=== PATIENT | female | born 1965 ===

== ENCOUNTER 2018-05-21 12:10 | Emergency (ER) | payer SELFPAY ==
[2018-05-21] MEDS ORDERED: FENTANYL CITR 100 MCG/2 ML ONE (13:27)
[2018-05-21] MEDS ORDERED: DIAZEPAM 2 MG TABLET ONE (13:28)
--- NOTE | 2018-05-21 14:00 | RAD REPORT ---
EXAM DESCRIPTION: RAD - Lumbar Spine 3 Views - 05/21/2018 1:46 pm CLINICAL HISTORY: Back pain FINDINGS: The alignment of the lumbar spine is satisfactory. No fracture or dislocation is seen. Minimal spondylosis involves the lumbar spine. Bones appear somewhat osteoporotic.
--- NOTE | 2018-05-21 14:09 | EDPHYS ---
Physician Documentation [facility] Name: Kaylah Anaya Age: 53 yrs Sex: Female : 1965 Arrival Date: 05/21/2018 Time: 12:12 Bed 14 Private MD: ED Physician Jake Green HPI: 05/21 13:32 This 53 yrs old Female presents to ER via Ambulatory with complaints of Back Injury. snw 13:32 The patient presents with pain that is acute, and decreased range of motion. The snw symptoms are located in the low back. Onset: The symptoms/episode began/occurred suddenly, today. The pain does not radiate. Associated signs and symptoms: Pertinent positives: tailbone pain. The problem was sustained when lifting heavy object, pt let go of object and fell back onto buttocks. Severity of symptoms: At their worst the symptoms were moderate. The patient has not experienced similar symptoms in the past. It is unknown whether or not the patient has recently seen a physician. 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 - Social history:: Smoking status: Patient/guardian denies using tobacco. - Ebola Screening: : Patient denies travel to an Ebola-affected area in the 21 days before illness onset. ROS: 13:31 Constitutional: Negative for fever, chills, and weight loss, Eyes: Negative for injury, snw pain, redness, and discharge, ENT: Negative for injury, pain, and discharge, Neck: Negative for injury, pain, and swelling, Cardiovascular: Negative for chest pain, palpitations, and edema, Respiratory: Negative for shortness of breath, cough, wheezing, and pleuritic chest pain, Abdomen/GI: Negative for abdominal pain, nausea, vomiting, diarrhea, and constipation, Back: Positive for injury and pain, : Negative for injury, bleeding, discharge, and swelling, MS/Extremity: Negative for injury and deformity, Skin: Negative for injury, rash, and discoloration, Neuro: Negative for headache, weakness, numbness, tingling, and seizure. Exam: 13:31 Constitutional: This is a well developed, well nourished patient who is awake, alert, snw and in no acute distress. Head/Face: Normocephalic, atraumatic. Eyes: Pupils equal round and reactive to light, extra-ocular motions intact. Lids and lashes normal. Conjunctiva and sclera are non-icteric and not injected. Cornea within normal limits. Periorbital areas with no swelling, redness, or edema. ENT: Nares patent. No nasal discharge, no septal abnormalities noted. Tympanic membranes are normal and external auditory canals are clear. Oropharynx with no redness, swelling, or masses, exudates, or evidence of obstruction, uvula midline. Mucous membranes moist. Neck: Trachea midline, no thyromegaly or masses palpated, and no cervical lymphadenopathy. Supple, full range of motion without nuchal rigidity, or vertebral point tenderness. No Meningismus. Chest/axilla: Normal chest wall appearance and motion. Nontender with no deformity. No lesions are appreciated. Cardiovascular: Regular rate and rhythm with a normal S1 and S2. No gallops, murmurs, or rubs. Normal PMI, no JVD. No pulse deficits. Respiratory: Lungs have equal breath sounds bilaterally, clear to auscultation and percussion. No rales, rhonchi or wheezes noted. No increased work of breathing, no retractions or nasal flaring. Abdomen/GI: Soft, non-tender, with normal bowel sounds. No distension or tympany. No guarding or rebound. No evidence of tenderness throughout. Skin: Warm, dry with normal turgor. Normal color with no rashes, no lesions, and no evidence of cellulitis. MS/ Extremity: Pulses equal, no cyanosis. Neurovascular intact. Full, normal range of motion. Neuro: Awake and alert, GCS 15, oriented to person, place, time, and situation. Cranial nerves II-XII grossly intact. Motor strength 5/5 in all extremities. Sensory grossly intact. Cerebellar exam normal. Normal gait. 13:31 Back: pain, that is moderate, that is severe, normal spinal alignment noted, vertebral tenderness, muscle spasm, is appreciated in the low back area. Vital Signs: 12:17 BP 130 / 84; Pulse 75; Resp 18; Temp 97.7; Pulse Ox 97% on R/A; Weight 113.4 kg (R); aj1 Height 5 ft. 9 in. (175.26 cm) (R); Pain 8/10; 13:15 BP 113 / 95; Pulse 62; Resp 19; Pulse Ox 99% on R/A; rb1 14:15 BP 111 / 62; Pulse 60; Resp 18; Pulse Ox 96% on R/A; rb1 12:17 Body Mass Index 36.92 (113.40 kg, 175.26 cm) aj1 MDM: 12:25 Patient medically screened. snw 14:09 Data reviewed: vital signs, nurses notes. Data interpreted: Pulse oximetry: on room air snw is 99 %. Interpretation: acceptable. Counseling: I had a detailed discussion with the patient and/or guardian regarding: the historical points, exam findings, and any diagnostic results supporting the discharge/admit diagnosis, radiology results, the need for outpatient follow up, to return to the emergency department if symptoms worsen or persist or if there are any questions or concerns that arise at home. Special discussion: I have referred the patient to see his PCP for further evaluation of high blood pressure. Based on the history and exam findings, there is no indication for further emergent testing or inpatient evaluation. I discussed with the patient/guardian the need to see the back specialist for further evaluation of the symptoms. I discussed with the patient/guardian the need to see the primary care provider for further evaluation of the symptoms. 05/21 12:25 Order name: Lumbar Spine (3 Views) XRAY; Complete Time: 14:03 snw Administered Medications: 13:24 Drug: fentaNYL (PF) 50 mcg Route: IM; Site: left gluteus; rb1 14:00 Follow up: Response: No adverse reaction; Pain is decreased rb1 13:24 Drug: Valium 2 mg Route: PO; rb1 14:00 Follow up: Response: No adverse reaction; Pain is decreased rb1 Disposition: 15:24 Co-signature as Attending Physician, Jake Green MD I agree with the assessment and kdr plan of care. Disposition: 05/21/18 14:07 Discharged to Home. Impression: Fall on same level, unspecified, Low back pain, Muscle spasm of back. - Condition is Stable. - Discharge Instructions: Back Pain, Adult, Hypertension, Muscle Cramps and Spasms, Musculoskeletal Pain, Cryotherapy, Heat Therapy. - Prescriptions for Diclofenac Sodium 75 mg Oral Tablet Sustained Release - take 1 tablet by ORAL route 2 times per day; 30 tablet. orphenadrine citrate 100 mg Oral Tablet Sustained Release - take 1 tablet by ORAL route 2 times per day As needed; 20 tablet. Ultram 50 mg Oral Tablet - take 1 tablet by ORAL route every 6 hours As needed; 10 tablet. - Work release form, Medication Reconciliation Form, Thank You Letter, Antibiotic Education, Prescription Opioid Use form. - Follow up: Private Physician; When: 2 - 3 days; Reason: Recheck today's complaints, Continuance of care, Re-evaluation by your physician. Follow up: Emergency Department; When: As needed; Reason: Fever > 102 F, Worsening of condition. Signatures: Dispatcher [employer] EDMS Blanca Livingston RN RN aj1 Jake Green MD MD kdr Belgica Amaro, BAIT MAKER-C BAIT MAKER-Csnw Lily Helms RN RN rb1 Corrections: (The following items were deleted from the chart) 14:43 14:07 05/21/2018 14:07 Discharged to Home. Impression: Fall on same level, unspecified; rb1 Low back pain; Muscle spasm of back. Condition is Stable. Forms are Medication Reconciliation Form, Thank You Letter, Antibiotic Education, Prescription Opioid Use. Follow up: Private Physician; When: 2 - 3 days; Reason: Recheck today's complaints, Continuance of care, Re-evaluation by your physician. Follow up: Emergency Department; When: As needed; Reason: Fever > 102 F, Worsening of condition. snw
--- NOTE | 2018-05-21 14:09 | ER ---
Nurse's Notes [facility] Name: Kaylah Anaya Age: 53 yrs Sex: Female : 1965 Arrival Date: 05/21/2018 Time: 12:12 Bed 14 Private MD: Diagnosis: Fall on same level, unspecified;Low back pain;Muscle spasm of back Presentation: 05/21 12:13 Presenting complaint: Patient states: "I was moving furniture and it was really heavy. aj1 I lifted it, and I really hurt my back, so I dropped it and fell backward, which hurt my butt." Reports pain to left lower back and buttocks. States this occurred one hour ago. Denies weakness, or trouble walking. Transition of care: patient was not received from another setting of care. Onset of symptoms was May 21, 2018 at 11:15. Risk Assessment: Do you want to hurt yourself or someone else? Patient reports no desire to harm self or others. Initial Sepsis Screen: Does the patient meet any 2 criteria? No. Patient's initial sepsis screen is negative. Does the patient have a suspected source of infection? No. Patient's initial sepsis screen is negative. Care prior to arrival: None. 12:13 Method Of Arrival: Ambulatory aj1 12:13 Acuity: ERROL 4 aj1 Triage Assessment: 12:17 General: Appears in no apparent distress. Behavior is calm, cooperative, appropriate aj1 for age. Pain: Complains of pain in left low back and pelvis Pain currently is 8 out of 10 on a pain scale. Neuro: Level of Consciousness is awake, alert, obeys commands. Cardiovascular: Patient's skin is warm and dry. Respiratory: Airway is patent Respiratory effort is even, unlabored, Respiratory pattern is regular, symmetrical. 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 - Social history:: Smoking status: Patient/guardian denies using tobacco. - Ebola Screening: : Patient denies travel to an Ebola-affected area in the 21 days before illness onset. Screenin:29 Abuse screen: Denies threats or abuse. Nutritional screening: No deficits noted. rb1 Tuberculosis screening: No symptoms or risk factors identified. Fall Risk None identified. Assessment: 12:29 General: Appears uncomfortable, Behavior is calm, cooperative. Pain: Complains of pain rb1 in left low back and sacrum Pain currently is 8 out of 10 on a pain scale. Pain began 2 hours ago. Neuro: Level of Consciousness is awake, alert, obeys commands, Oriented to person, place, time, situation. Cardiovascular: Capillary refill < 3 seconds is brisk in bilateral fingers. Respiratory: Airway is patent Respiratory effort is even, unlabored, Respiratory pattern is regular, symmetrical. GI: No signs and/or symptoms were reported involving the gastrointestinal system. : No signs and/or symptoms were reported regarding the genitourinary system. Derm: Skin is pink, warm \\T\\ dry. Musculoskeletal: Range of motion: intact in all extremities. 13:25 Reassessment: Patient appears in no apparent distress at this time. Patient and/or rb1 family updated on plan of care and expected duration. Pain level reassessed. Patient is alert, oriented x 3, equal unlabored respirations, skin warm/dry/pink. 14:20 Reassessment: Patient appears in no apparent distress at this time. Patient and/or rb1 family updated on plan of care and expected duration. Pain level reassessed. Patient is alert, oriented x 3, equal unlabored respirations, skin warm/dry/pink. Pt. stated, "I can't take diclofenac because it's an NSAID and I can't take NSAID's." Pt. requested Ultram instead, pt. stated, "I have taken Ultram before and didn't have any issues." Provider notified. Vital Signs: 12:17 BP 130 / 84; Pulse 75; Resp 18; Temp 97.7; Pulse Ox 97% on R/A; Weight 113.4 kg (R); aj1 Height 5 ft. 9 in. (175.26 cm) (R); Pain 8/10; 13:15 BP 113 / 95; Pulse 62; Resp 19; Pulse Ox 99% on R/A; rb1 14:15 BP 111 / 62; Pulse 60; Resp 18; Pulse Ox 96% on R/A; rb1 12:17 Body Mass Index 36.92 (113.40 kg, 175.26 cm) aj1 ED Course: 12:12 Patient arrived in ED. tw3 12:16 Triage completed. aj1 12:17 Arm band placed on Patient placed in an exam room. aj1 12:24 Belgica Amaro FNP-C is PHCP. snw 12:24 Jake Green MD is Attending Physician. snw 12:29 Patient has correct armband on for positive identification. Bed in low position. Call rb1 light in reach. Side rails up X 1. Pulse ox on. NIBP on. Pillow given. 12:38 Lily Helms, RN is Primary Nurse. rb1 13:44 Lumbar Spine (3 Views) XRAY In Process Unspecified. EDMS 14:44 No provider procedures requiring assistance completed. Patient did not have IV access rb1 during this emergency room visit. Administered Medications: 13:24 Drug: fentaNYL (PF) 50 mcg Route: IM; Site: left gluteus; rb1 14:00 Follow up: Response: No adverse reaction; Pain is decreased rb1 13:24 Drug: Valium 2 mg Route: PO; rb1 14:00 Follow up: Response: No adverse reaction; Pain is decreased rb1 Outcome: 14:07 Discharge ordered by . snw 14:35 Patient left the ED. rb1 14:35 Discharged to home ambulatory, with family. rb1 14:35 Condition: stable 14:35 Discharge instructions given to patient, Instructed on discharge instructions, follow up and referral plans. medication usage, Demonstrated understanding of instructions, follow-up care, medications, Prescriptions given X 2. Signatures: Dispatcher [employer] EDMS Blanca Livingston RN RN aj1 Belgica Amaro FNP-C AIRCRAFT REFUELLER-Csnw Lily Helms, RN RN rb1 Regina Muller tw3 Corrections: (The following items were deleted from the chart) 14:44 14:43 Patient left the ED. rb1 rb1
== END 2018-05-21 14:43 | disposition home or self-care (01) ==
LOC: ER 12:10
DX: M62.830 Muscle spasm of back (principal); W18.30XA Fall on same level, unspecified, initial encounter; Y93.89 Activity, other specified; Y92.9 Unspecified place or not applicable; Z88.5 Allergy status to narcotic agent; Z98.82 Breast implant status
CPT/HCPCS: 72100; 96372; 99284; J3010